=== PATIENT | female | born 1990 | race Caucasian/White ===

== ENCOUNTER 2018-02-24 12:34 | Emergency (ER) | payer SELFPAY ==
[2018-02-24] MEDS ORDERED: RINGERS SOLUTION,LACTATED 1,000 ML IV ONE (12:57)
[2018-02-24] MEDS ORDERED: NORMAL SALINE 1000 ML 1,000 ML IV PRN (12:57)
--- NOTE | 2018-02-24 12:58 | ER Document Report ---
ED Medical Screen (RME) - General Chief Complaint: Alcohol Withdrawl Stated Complaint: ALCOHOL WITDRAWAL Time Seen by Provider: 02/24/18 12:56 Notes: 27 years old female with chronic alcoholism presents today wished to go through detox program. Because she is tired of going through withdrawals. Last drink was 2 AM. Drinks variable amount of all kind of liquids. On examination-alert oriented 3, and multiple bruises noted over the lower extremity. No tremors were noted no delirium. TRAVEL OUTSIDE OF THE [place] IN LAST 30 DAYS: No - Related Data Allergies/Adverse Reactions: No Known Allergies Allergy (Verified 02/24/18 12:36) Physical Exam - Vital signs Vitals: Temp Pulse Resp BP Pulse Ox 98.0 F 74 14 122/64 99 02/24/18 12:47 02/24/18 12:47 02/24/18 12:47 02/24/18 12:47 02/24/18 12:47 Course - Vital Signs Vital signs: Temp Pulse Resp BP Pulse Ox 98.0 F 74 14 122/64 99 02/24/18 12:47 02/24/18 12:47 02/24/18 12:47 02/24/18 12:47 02/24/18 12:47 Doctor's Discharge - Discharge Referrals: URSULA QIU MD [Primary Care Provider] - Follow up as needed
[2018-02-24 14:10] LABS: ABSOLUTE LYMPHOCYTES (AUTO) 1.9 10^3/uL (0.5-4.7); ABSOLUTE MONOCYTES (AUTO) 0.3 10^3/uL (0.1-1.4); ABSOLUTE NEUT (AUTO) 9.8 10^3/uL (1.7-8.2); BASOPHILS % (AUTO) 0.3 % (0-2); EOSINOPHILS % (AUTO) 0.1 % (0-6); HEMATOCRIT 48.4 % (36.0-47.0); HEMOGLOBIN 16.7 g/dL (12.0-15.5); LYMPHOCYTES % (AUTO) 15.5 % (13-45); MEAN CORPUSCULAR HEMOGLOBIN 34.8 pg (27.0-33.4); MEAN CORPUSCULAR HGB CONC 34.6 g/dL (32.0-36.0); MEAN CORPUSCULAR VOLUME 101 fl (80-97); MONOCYTES % (AUTO) 2.8 % (3-13); PLATELET COUNT 336 10^3/uL (150-450); RED CELL DISTRIBUTION WIDTH 13.4 % (11.5-14.0); SEGMENTED NEUTROPHILS % (AUTO) 81.3 % (42-78); TOTAL CELLS COUNTED % (AUTO) 100 %; WHITE BLOOD COUNT 12.1 10^3/uL (4.0-10.5)
[2018-02-24 14:16] LABS: APPEARANCE,URINE SLIGHTLY-CLOUDY; BILIRUBIN,URINE NEGATIVE (NEGATIVE); COLOR,URINE YELLOW; GLUCOSE, URINE NEGATIVE (NEGATIVE); KETONES,URINE 80 mg/dL (NEGATIVE); LEUKOCYTE ESTERASE,URINE NEGATIVE (NEGATIVE); NITRITE,URINE NEGATIVE (NEGATIVE); PROTEIN,URINE 30 mg/dL (NEGATIVE); URINE SPECIFIC GRAVITY 1.023; UROBILINOGEN,URINE NEGATIVE mg/dL (<2.0)
[2018-02-24] MEDS ORDERED: THIAMINE HCL INJ 200 MG/2 ML VIAL IV ONE (14:18)
[2018-02-24] MEDS ORDERED: DEXTROSE 5%-LACTATED RINGERS 1,000 ML IV ONE (14:19)
[2018-02-24 14:30] LABS: URINE AMPHETAMINES SCREEN NEGATIVE; URINE BARBITURATES SCREEN NEGATIVE; URINE BENZODIAZEPINES SCREEN NEGATIVE; URINE COCAINE SCREEN NEGATIVE; URINE MARIJUANA (THC) SCREEN UNCONFIRMED POSITIVE; URINE METHADONE SCREEN NEGATIVE; URINE PHENCYCLIDINE SCREEN NEGATIVE
--- NOTE | 2018-02-24 14:35 | ER Document Report ---
ED Substance Abuse / Acc. OD - General Mode of Arrival: Ambulatory Information source: Patient TRAVEL OUTSIDE OF THE [place] IN LAST 30 DAYS: No <WAGNER LIPSCOMB - Last Filed: 02/24/18 14:31> <JM GRAMAJO - Last Filed: 02/24/18 16:25> - General Chief Complaint: Alcohol Withdrawl Stated Complaint: ALCOHOL WITDRAWAL Time Seen by Provider: 02/24/18 12:56 Notes: 27-year-old female who presents to the emergency department today with complaints of EtOH abuse and wanting help to stop. patient has been in rehab 5 times according to the E note and was "drunk 1 hour after leaving rehab last" . Patient states she wants help again trying to stop and she is not able to do it on her own. Patient states she gets "the shakes, headache, and chills" when trying to detox on her own. Patient denies homicidal or suicidal ideation. ( WAGNER LIPSCOMB) - Related Data Allergies/Adverse Reactions: No Known Allergies Allergy (Verified 02/24/18 12:36) Past Medical History - General Information source: Patient - Social History Smoking Status: Current Every Day Smoker Cigarette use (# per day): Yes Frequency of alcohol use: Heavy Drug Abuse: None Lives with: Family Family History: Reviewed & Not Pertinent Patient has suicidal ideation: No Patient has homicidal ideation: No Renal/ Medical History: Denies: Hx Peritoneal Dialysis Surgical Hx: Negative <WAGNER LIPSCOMB - Last Filed: 02/24/18 14:31> Review of Systems - Review of Systems Constitutional: See HPI, Other - EtOH abuse, EtOH withdrawal EENT: No symptoms reported Cardiovascular: No symptoms reported Respiratory: No symptoms reported Gastrointestinal: No symptoms reported Genitourinary: No symptoms reported Female Genitourinary: No symptoms reported Musculoskeletal: No symptoms reported Skin: No symptoms reported Hematologic/Lymphatic: No symptoms reported Neurological/Psychological: No symptoms reported -: Yes All other systems reviewed and negative <WAGNER LIPSCOMB - Last Filed: 02/24/18 14:31> Physical Exam <WAGNER LIPSCOMB - Last Filed: 02/24/18 14:31> <JM GRAMAJO - Last Filed: 02/24/18 16:25> - Vital signs Vitals: Temp Pulse Resp BP Pulse Ox 98.0 F 74 14 122/64 99 02/24/18 12:47 02/24/18 12:47 02/24/18 12:47 02/24/18 12:47 02/24/18 12:47 - Notes Notes: Physical Exam: General: Alert, appears well. Slightly shaky. HEENT: Normocephalic. Atraumatic. PERRL. Extraocular movements intact. Oropharynx clear. Neck: Supple. Non-tender. Respiratory: No respiratory distress. Clear and equal breath sounds bilaterally. Cardiovascular: Regular rate and rhythm. Abdominal: Normal Inspection. Non-tender. No distension. Normal Bowel Sounds. Back: Non-tender. No deformity or step off. Extremities: Moves all four extremities. Upper extremities: Normal inspection. Normal ROM. Lower extremities: Normal inspection. No edema. Normal ROM. Neurological: Normal cognition. AAOx4. Normal speech. Psychological: Normal affect. Normal Mood. Skin: Diffuse areas of ecchymosis across bilateral lower extremities in various stages of healing (WAGNER LIPSCOMB) Course - Laboratory Result Diagrams: 02/24/18 13:50 02/24/18 13:50 <WAGNER LIPSCOMB - Last Filed: 02/24/18 14:31> - Laboratory Result Diagrams: 02/24/18 13:50 02/24/18 14:56 <JM GRAMAJO - Last Filed: 02/24/18 16:25> - Re-evaluation Re-evalutation: 02/24/18 16:20 The patient's alcohol level is down to 0 at this time. She does not have any tachycardia, heart rate is 80. She does not have any skin diaphoresis. She is sitting quite comfortably and conversing and appears in no distress, not even anxious. She does not know if she is ever tried clonidine in the past for blunting her withdrawal symptoms. Patient was seen by our mental health specialist, and by our social media marketing specialist. Patient was given resources and numbers to contact for entering a lengthy detoxification program. (JM GRAMAJO) - Vital Signs Vital signs: Temp Pulse Resp BP Pulse Ox 98.5 F 80 20 114/57 L 98 02/24/18 15:41 02/24/18 15:41 02/24/18 15:41 02/24/18 15:41 02/24/18 15:41 - Laboratory Laboratory results interpreted by me: 02/24/18 02/24/18 02/24/18 13:50 13:50 14:56 WBC 12.1 H Hgb 16.7 H Hct 48.4 H MCV 101 H MCH 34.8 H Seg Neutrophils % 81.3 H Monocytes % 2.8 L Absolute Neutrophils 9.8 H Glucose 48 L AST 135 H ALT 105 H Urine Protein 30 H Urine Ketones 80 H Discharge <WAGNER LIPSCOMB - Last Filed: 02/24/18 14:31> <JM GRAMAJO - Last Filed: 02/24/18 16:25> - Discharge Clinical Impression: Alcoholism /alcohol abuse, Desire for detoxification Condition: Stable Disposition: HOME, SELF-CARE Additional Instructions: Alcohol Withdrawal Your symptoms are caused by alcohol withdrawal. After a period of frequent drinking, the brain and body are changed by the alcohol. When you quit or reduce your drinking, the nervous system becomes unstable. Withdrawal symptoms can start a few hours after your last drink, but sometimes don't begin until a couple of days later. Symptoms can include shakiness, sweating, insomnia, nausea , vomiting, fearfulness, hallucinations, and seizures. In addition to the acute effects of alcohol withdrawal, we often have to deal with the medical effects of alcoholism. These problems often include dehydration, stomach irritation, intestinal bleeding, low blood sugar, liver disease, and pancreas inflammation. Treatment for alcohol withdrawal includes mild sedatives, vitamins, and fluids. You need to be with someone who can help if symptoms become severe. Many patients can withdraw at home. Admission to the hospital or a detox facility may be necessary if withdrawal symptoms are severe and uncontrollable. Abstaining from alcohol is the only effective long-term treatment. If you start drinking again, you will not be able to control yourself after the first drink. Treatment programs are available. In addition, many alcoholics benefit from Alcoholics Anonymous or other support groups available through your counselor or voodoo regrinder operator. AL-ANON and ALA-TEEN are support groups for friends and family members of an alcoholic. Go to the emergency room if you develop persistent vomiting, severe abdominal pain, fever, shortness of breath, hallucinations, uncontrollable tremors, or seizures. Take the medication as prescribed to lessen the withdrawal symptoms if needed. Try to abstain from alcohol completely, or severely limit your intake to the minimum necessary to keep her symptoms under control. Follow-up with the resources provided to you by the social media marketing specialist and mental health worker. RETURN TO THE EMERGENCY ROOM IF ANY NEW OR WORSENING SYMPTOMS. Prescriptions: Clonidine HCl [Catapres 0.1 mg Tablet] 0.05 mg PO Q8 PRN #10 tablet PRN Reason: Withdrawal Symptoms Referrals: URSULA QIU MD [Primary Care Provider] - Follow up as needed Scribe Documentation - Scribe Written by Leonardo:: Leonardo Jay, 02/24/2018 1435 acting as scribe for :: Manjula <WAGNER LIPSCOMB - Last Filed: 02/24/18 14:31>
[2018-02-24 15:24] LABS: ALANINE AMINOTRANSFERASE 105 U/L (9-52); ALBUMIN 4.9 g/dL (3.5-5.0); ALCOHOL 25 mg/dL (NONE DETECTED); ALKALINE PHOSPHATASE 75 U/L (38-126); ANION GAP 15 (5-19); ASPARTATE AMINO TRANSFERASE 135 U/L (14-36); BILIRUBIN,DIRECT 0.4 mg/dL (0.0-0.4); BILIRUBIN,TOTAL 0.8 mg/dL (0.2-1.3); BLOOD UREA NITROGEN 12 mg/dL (7-20); CALCIUM 9.8 mg/dL (8.4-10.2); CARBON DIOXIDE 23 mmol/L (22-30); CHLORIDE 102 mmol/L (98-107); GLUCOSE 48 mg/dL (75-110); POTASSIUM 4.5 mmol/L (3.6-5.0); SODIUM 140.3 mmol/L (137-145)
[2018-02-24] MEDS ORDERED: IBUPROFEN 400 MG TABLET PO ONE (15:37)
[2018-02-24 15:42] VITALS: BP 114/57
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
== END 2018-02-24 17:00 | disposition home or self-care (01) ==
LOC: ER 12:34
DX: F10.20 Alcohol dependence, uncomplicated (principal); F17.210 Nicotine dependence, cigarettes, uncomplicated
CPT/HCPCS: 99285; 96361; 96374; 36415; 80307 ×2; 84703; 85025; 80053; 81001; J3490; J3411

== ENCOUNTER 2019-02-17 16:34 | Outpatient (CLI) | payer MEDICAID ==
[2019-02-17 18:31] LABS: APPEARANCE,URINE SLIGHTLY-CLOUDY; BILIRUBIN,URINE NEGATIVE (NEGATIVE); COLOR,URINE YELLOW; GLUCOSE, URINE NEGATIVE (NEGATIVE); KETONES,URINE NEGATIVE (NEGATIVE); LEUKOCYTE ESTERASE,URINE NEGATIVE (NEGATIVE); NITRITE,URINE NEGATIVE (NEGATIVE); PROTEIN,URINE NEGATIVE (NEGATIVE); URINE SPECIFIC GRAVITY 1.015; UROBILINOGEN,URINE NEGATIVE mg/dL (<2.0)
[2019-02-17 19:02] LABS: CHLAM PCR NOT DETECTED (NOT DETECT)
[2019-02-17 19:47] LABS: URINE AMPHETAMINES SCREEN NEGATIVE; URINE BARBITURATES SCREEN NEGATIVE; URINE BENZODIAZEPINES SCREEN NEGATIVE; URINE COCAINE SCREEN NEGATIVE; URINE MARIJUANA (THC) SCREEN NEGATIVE; URINE METHADONE SCREEN NEGATIVE; URINE PHENCYCLIDINE SCREEN NEGATIVE
--- NOTE | 2019-02-17 20:25 | Non Stress Test Report ---
Non Stress Test Datetime Report Generated by CPN: 02/17/2019 20:25 DEMOGRAPHIC Test Number: 1 EGA NST: 34.4 INDICATION Indication for Study: Ordered by Provider VITAL SIGNS Temperature - NST: 98.1 Pulse - NST: 84 RESP - NST: 16 NBPSYS NST: 119 NBPDIA NST: 57 URINE RESULTS Urine Protein, NST: Negative Urine Ketones - NST: Negative Urine Glucose - NST: Negative MONITORING Time on Monitor: 02/17/2019 17:03 Time off Monitor: 02/17/2019 19:19 NST Duration: 136 NST INTERVENTIONS NST Interventions: PO Hydration BABY A: [id number] BABY A Movement : Present Contraction Frequency : occ FHR Baseline : 135 Accelerations : 15X15 Decelerations : None Variability : Moderate 6-25bpm NST Review: Questionable if Meets Criteria for Reactive NST NST Review and Verified By : RN angel NST Results: Reactive NST REPORT Report Trigger: Send Report
== END 2019-02-17 20:01 | disposition home or self-care (01) ==
LOC: LC 16:34
PROVIDERS: ATTEND Obstetrics & Gynecology
PROC: 4A1HXCZ Monitoring of Products of Conception, Cardiac Rate, External Approach (ICD-10-PCS; principal; 2019-02-17)
DX: O47.03 False labor before 37 completed weeks of gestation, third trimester (principal); Z3A.34 34 weeks gestation of pregnancy
CPT/HCPCS: 59025; 80307; 81001; 84112; 87491; 87591

== ENCOUNTER 2019-03-08 15:34 | Inpatient (IN) | payer MEDICAID ==
[2019-03-08 16:11] LABS: APPEARANCE,URINE SLIGHTLY-CLOUDY; BILIRUBIN,URINE NEGATIVE (NEGATIVE); COLOR,URINE YELLOW; GLUCOSE, URINE NEGATIVE (NEGATIVE); KETONES,URINE 20 mg/dL (NEGATIVE); LEUKOCYTE ESTERASE,URINE LARGE (NEGATIVE); NITRITE,URINE NEGATIVE (NEGATIVE); PROTEIN,URINE 30 mg/dL (NEGATIVE); URINE SPECIFIC GRAVITY 1.019
[2019-03-08] MEDS ORDERED: OXYTOCIN/NORMAL SALINE 20 UNIT/1,000 ML RTUINJ IV PRN ×2 (16:28→21:02)
[2019-03-08] MEDS ORDERED: OXYTOCIN/NORMAL SALINE 20 UNIT/1,000 ML RTUINJ ONE (16:28)
[2019-03-08] MEDS ORDERED: MISOPROSTOL 0.2 MG TABLET ONE (16:28)
[2019-03-08] MEDS ORDERED: LIDOCAINE 1% INJ-PF (10 MG/ML) 30 ML SDV ONE (16:28)
[2019-03-08] MEDS ORDERED: RINGERS SOLUTION,LACTATED 1,000 ML IV PRN (16:28)
[2019-03-08] MEDS ORDERED: OXYTOCIN 10 UNIT/ML VIAL ONE (16:28)
[2019-03-08 16:37] LABS: URINE AMPHETAMINES SCREEN NEGATIVE; URINE BARBITURATES SCREEN NEGATIVE; URINE BENZODIAZEPINES SCREEN NEGATIVE; URINE COCAINE SCREEN NEGATIVE; URINE MARIJUANA (THC) SCREEN NEGATIVE; URINE METHADONE SCREEN NEGATIVE; URINE PHENCYCLIDINE SCREEN NEGATIVE
[2019-03-08 16:44] LABS: HEMATOCRIT 31.1 % (36.0-47.0); HEMOGLOBIN 10.6 g/dL (12.0-15.5); MEAN CORPUSCULAR HEMOGLOBIN 31.7 pg (27.0-33.4); MEAN CORPUSCULAR HGB CONC 34.1 g/dL (32.0-36.0); MEAN CORPUSCULAR VOLUME 93 fl (80-97); PLATELET COUNT 219 10^3/uL (150-450); RED BLOOD COUNT 3.36 10^6/uL (3.72-5.28); RED CELL DISTRIBUTION WIDTH 13.5 % (11.5-14.0); WHITE BLOOD COUNT 12.4 10^3/uL (4.0-10.5)
[2019-03-08 17:09] LABS: ABSOLUTE MONOCYTES # (MANUAL) 0.4 10^3/uL (0.1-1.4); BAND NEUTROPHILS % (MANUAL) 1 % (3-5); BASOPHILS % (MANUAL) 0 % (0-2); EOSINOPHILS % (MANUAL) 0 % (0-6); LYMPHOCYTES % (MANUAL) 16 % (13-45); MONOCYTES % (MANUAL) 3 % (3-13); PLATELET COMMENT ADEQUATE; RBC MORPHOLOGY COMMENT NORMO-CYTIC/CHROMIC; SEGMENTED NEUTROPHILS % (MAN) 80 % (42-78); TOTAL CELLS COUNTED 100
--- NOTE | 2019-03-08 18:20 | Admission Physical ---
Datetime Report Generated by CPN: 03/08/2019 18:20 CURRENT ADMISSION Hx Assessment: The History has been Reviewed and is Current Chief Complaint: Suspected Ruptured Membranes Indication for Induction: Not Applicable Admit Impression : Term, Intrauterine ; Ruptured Membranes Admit Plan: Admit to Unit; Initiate Labor Protocol; Initiate Labor Augmentation Protocol ALLERGIES Medication Allergies: No Medication Allergies: No Known Allergies (03/08/2019) Latex: No Latex Allergies OBSTETRICAL HISTORY EDC: 03/27/2019 00:00 : 5 Para: 3 Term: 2 : 1 SAB: 1 Livin Cesareans: 0 ART Treatment: No Hx Loss/Stillborn: No Depression/PP Depression: Yes PTL/PROM: Yes Obstetrical History Comments: Pt S/O reports to staff pt is a daily alcohol drinker and smokes marijuana. He asks that we not disclose to the patient that he gave us this information. SEE RECORDS Alcohol: No Marijuana : No Cocaine: No Other Illicit Drugs: No Cigarettes: Current Everyday Smoker. [id number] Cigarette Frequency: < 5 per day Advised to Stop: Yes MEDICAL HISTORY Diabetes: No Blood Transfusion: No Pulmonary Disease (Asthma, TB): No Breast Disease: No Hypertension: No Spout Worker Surgery: No Heart Disease: No Hosp/Surgery: No Autoimmune Disorder: No Anesthetic Complications: No Kidney Disease: No Abnormal Pap Smear: No Neuro/Epilepsy: No Psychiatric Disorders: Yes Other Medical Diseases: No Hepatitis/Liver Disease: No Significant Family History: No Varicosities/Phlebitis: No Trauma/Violence : No Thyroid Dysfunction: No INFECTIOUS HISTORY Gonorrhea: No Genital Herpes: No Chlamydia: No Tuberculosis: No Syphilis: No Hepatitis: No HIV/AIDS Exposure: No Rash or Viral Illness: No HPV: No PHYSICAL EXAM General: Normal Neurologic: Normal Heart: Normal Lungs: Normal Extremities: Normal Pelvic Type: Adequate Physical Exam Comments: proven to 8+lbs Vital Signs: Reviewed; Within Normal Limits VAGINAL EXAM Contraction Comments: 2-3 MEMBRANES Membranes: Ruptured Amniotic Fluid Color: Clear FETUS A EGA: 37.2 Monitoring: External US Decelerations: None FHR Category: Category I Presentation: Vertex Admit Comment: 28yo @ 37w2d with SROM @ 1445 today. Pt. is A neg, RI, GBS neg with hx of PTD @ 36w and on p17 injections this . Hx also significant for Late PNC, e-coli UTI and depression and anxiety which she is on zoloft for . Plan is to augment with pit per pt's desire, epidural prn. Anticipate delivery PLANS FOR LABOR AND DELIVERY Labor and Delivery: None Pain Management: Epidural Feeding Preference: Breast Benefit of Breast Feed Discussed: Yes Circumcision: Yes INFORMED CONSENT Assignment: Deedee Locke MD Signature: with User ID: [email or web address] : with User ID: [email or web address]
[2019-03-08] MEDS ORDERED: FENTANYL CITRATE INJ/PF 100 MCG/2 ML AMPUL ONE (20:51)
[2019-03-08] MEDS ORDERED: ZOLPIDEM TARTRATE 5 MG TABLET PO PRN (21:02)
[2019-03-08] MEDS ORDERED: MEASLES,MUMPS&RUBELLA VACC/PF 0.5 ML VIAL SUBCUT PRN (21:02)
[2019-03-08] MEDS ORDERED: PROMETHAZINE HCL 25 MG SUPP.RECT PR PRN (21:02)
[2019-03-08] MEDS ORDERED: MAGNESIUM HYDROXIDE SUSP 30 ML UDCUP PO PRN (21:02)
[2019-03-08] MEDS ORDERED: PROMETHAZINE HCL 25 MG TABLET PO PRN (21:02)
[2019-03-08] MEDS ORDERED: DIBUCAINE 1% OINTMENT 56 GM TP PRN (21:02)
[2019-03-08] MEDS ORDERED: DIPHENHYDRAMINE HCL 25 MG CAPSULE PO PRN (21:02)
[2019-03-08] MEDS ORDERED: NA PHOS,M-B/NA PHOS,DI-BA (ADULT) 133 ML ENEMA PR PRN (21:02)
[2019-03-08] MEDS ORDERED: ACETAMINOPHEN 325 MG TABLET PO PRN (21:02)
[2019-03-08] MEDS ORDERED: DIPH/PERTUSS(ACELL)/TETANUS VAC/PF 0.5 ML SYR (>=10YO) IM PRN (21:02)
[2019-03-08] MEDS ORDERED: ACETAMINOPHEN WITH CODEINE #3 TABLET PO PRN (21:02)
[2019-03-08] MEDS ORDERED: PSEUDOEPHEDRINE HCL 30 MG TABLET PO PRN (21:02)
[2019-03-08] MEDS ORDERED: PROMETHAZINE HCL INJ 25 MG/1 ML VIAL IV PRN (21:02)
[2019-03-08] MEDS ORDERED: BENZOCAINE/MENTHOL AEROSOL SPRAY 56 ML TOP PRN (21:02)
[2019-03-08] MEDS ORDERED: GLYCERIN/WITCH HAZEL LEAF 1 EACH MED..WIPE TP PRN (21:02)
[2019-03-08] MEDS ORDERED: IBUPROFEN 800 MG TABLET ONE (22:31)
[2019-03-09] MEDS ORDERED: ACETAMINOPHEN WITH CODEINE #3 TABLET ONE (03:03)
[2019-03-09] MEDS: ACETAMINOPHEN WITH CODEINE #3 TABLET PO PRN ×2 (03:05→12:52)
[2019-03-09] MEDS ORDERED: IBUPROFEN 800 MG TABLET ONE (06:17)
[2019-03-09] MEDS: IBUPROFEN 800 MG TABLET PO SCH ×4 (06:19→21:50)
[2019-03-09 06:58] LABS: HEMATOCRIT 29.6 % (36.0-47.0); HEMOGLOBIN 10.3 g/dL (12.0-15.5); MEAN CORPUSCULAR HEMOGLOBIN 32.2 pg (27.0-33.4); MEAN CORPUSCULAR HGB CONC 34.9 g/dL (32.0-36.0); MEAN CORPUSCULAR VOLUME 92 fl (80-97); PLATELET COUNT 178 10^3/uL (150-450); RED CELL DISTRIBUTION WIDTH 13.3 % (11.5-14.0); WHITE BLOOD COUNT 12.2 10^3/uL (4.0-10.5)
--- NOTE | 2019-03-09 08:11 | Delivery Summary ---
Del Sum A-C Datetime Report Generated by CPN: 03/09/2019 08:10 DELIVERY PERSONNEL DELIVERY PERSONNEL: [id number] Delivery Doctor:: Deedee Locke MD (Annotations: Data stored by BALTA on behalf of user) Labor and Delivery Nurse:: Ellie Barajas RNguard immigration Nurse:: Rebeca Tiwari RN Forensic Chemist/TEA AND SPICE SUPERVISOR: Cherelle Rod, ST MATERNAL INFORMATION Delivery Anesthesia: None Medications After Delivery: Pitocin Bolus-Please Comment Delivery QBL: 179 Maternal Complications: None Provider Comments: VMI delivered in [place] presentation. No nuchal cord. Shoulders and body delivered without difficulty. cord doubly clamped and cut and infant to maternal abdomen for NRP. Placenta delivered intact but with trailing secondary lobe of placenta. Crudee with no e/o retained products. FF at U. No perineal lacerations. Mother and baby stable upon provider leaving the room. LABOR SUMMARY EDC: 03/27/2019 00:00 No. Babies in Womb: 1 Attempted: No Labor Anesthesia: None LABOR INFORMATION Reason for Induction: Not Applicable Onset of Labor: 03/08/2019 14:45 Complete Dilatation: 03/08/2019 20:23 Oxytocin: Augmentation Group B Beta Strep: negative Antibiotics # of Doses: 0 Steroids Given: None Reason Steroids Not Administered: Not Applicable MEMBRANES Membranes Rupture Method: Spontaneous Rupture of Membranes: 03/08/2019 14:45 Length of Rupture (hr): 5.75 Amniotic Fluid Color: Clear Amniotic Fluid Amount: Moderate Amniotic Fluid Odor: Normal STAGES OF LABOR Stage 1 hr: 5 Stage 1 min: 38 Stage 2 hr: 0 Stage 2 min: 7 Stage 3 hr: 0 Stage 3 min: 5 Total Time in Labor hr: 5 Total Time in Labor min: 50 VAGINAL DELIVERY Episiotomy: None Laceration #1: None Laceration Extension #1: N/A Laceration Repair: Not Applicable Sponge Count Correct: Yes Sharps Count Correct: Yes BABY A INFORMATION Delivery Date/Time: 03/08/2019 20:30 Method of Delivery: Vaginal Born in Route : No : N/A Forceps: N/A Vacuum Extraction: N/A Shoulder Dystocia : No PRESENTATION/POSITION BABY A Presentation: Cephalic Cephalic Presentation: Vertex Vertex Position: Left Occipital Anterior Breech Presentation: N/A PLACENTA INFORMATION BABY A Placenta Delivery Time : 03/08/2019 20:35 Placenta Method of Delivery: Spontaneous Placenta Status: Delivered SCORES BABY A Heart Rate 1 min: >100 bpm Resp Effort 1 min: Good Cry Reflex Irritability 1 min: Cough or Sneeze or Pulls Away Muscle Tone 1 min: Active Motion Color 1 min: Blue/Pale Resuscitation Effort 1 min: Tactile Stimulation SCORE 1 MIN: 8 Heart Rate 5 min: >100 bpm Resp Effort 5 min: Good Cry Reflex Irritability 5 min: Cough or Sneeze or Pulls Away Muscle Tone 5 min: Active Motion Color 5 min: Body [place], Extremities Blue Resuscitation Effort 5 min: Tactile Stimulation SCORE 5 MIN: 9 INFORMATION BABY A Gestational Age at Delivery: 37.2 Gestational Status: Early Term- 37- 38.6 Weeks Outcome : Liveborn Infant Condition : Stable Infant Sex: Female IDENTIFICATION BABY A Infant Verification Date/Time: 03/08/2019 22:49 ID Band Number: [id number] Mother's Name Verified: Yes RN Verifying Infant: Arnold WolfeNICOLE wheeler Additional Verifying Personnel: US Warren WEIGHT/LENGTH BABY A Infant Birthweight (gm): 3277 Weight (lb): 7 Infant Weight (oz): 4 Infant Length (in): 19.75 Length (cm): 50.17 CORD INFORMATION BABY A No. Cord Vessels: 3 Nuchal Cord : N/A Cord Blood Taken: Yes-For Eval (Mom's Blood Type - or O+) Infant Suction: None ASSESSMENT BABY A Complications: None Physical Findings at Delivery: Within Normal Limits Infant Respirations: Appears Normal Skin to Skin: Yes Skin to Skin Time (min): 40 Zipper Sewing Machine Operator/ALS Called : No Transferred To: Remains with Mother BABY B INFORMATION : N/A SIGNATURES Signature: with User ID: [email or web address]
[2019-03-09] MEDS: FAMOTIDINE 20 MG TABLET PO SCH ×3 (08:28→21:49)
[2019-03-09] MEDS ORDERED: SERTRALINE HCL 50 MG TABLET PO SCH ×2 (10:00→22:00)
--- NOTE | 2019-03-09 10:43 | PDOC PROGRESS REPORT ---
Subjective-OB Progress Note for:: 03/09/19 Subjective: Doing well, no c/o, no epidural, family at BS, just came from labor and delivery Physical Exam (OB) Vital Signs: Temp Pulse Resp BP Pulse Ox 97.8 F 66 14 114/55 L 99 03/09/19 08:22 03/09/19 08:22 03/09/19 08:22 03/09/19 08:22 03/09/19 08:22 Intake & Output 03/08/19 03/09/19 03/10/19 06:59 06:59 06:59 Weight 65.5 kg Objective-Diagnostic Laboratory: 03/09/19 06:17 03/08/19 03/08/19 03/08/19 15:45 16:33 16:33 WBC 12.4 H RBC 3.36 L Hgb 10.6 L Hct 31.1 L MCV 93 MCH 31.7 MCHC 34.1 RDW 13.5 Plt Count 219 Seg Neutrophils % Not Reportable Urine Color YELLOW Urine Appearance SLIGHTLY-CLOUDY Urine pH 6.0 Ur Specific [place] 1.019 Urine Protein 30 H Urine Glucose (UA) NEGATIVE Urine Ketones 20 H Urine Blood NEGATIVE Urine Nitrite NEGATIVE Ur Leukocyte Esterase LARGE H Blood Type A NEGATIVE Antibody Screen POSITIVE 03/09/19 03/09/19 06:17 06:17 WBC 12.2 H RBC 3.20 L Hgb 10.3 L Hct 29.6 L MCV 92 MCH 32.2 MCHC 34.9 RDW 13.3 Plt Count 178 Seg Neutrophils % Urine Color Urine Appearance Urine pH Ur Specific [place] Urine Protein Urine Glucose (UA) Urine Ketones Urine Blood Urine Nitrite Ur Leukocyte Esterase Blood Type A NEGATIVE Antibody Screen Assessment and Plan(PN) - Assessment and Plan (1) Vaginal delivery Is this a current diagnosis for this admission?: Yes (2) Spontaneous rupture of amniotic membranes Is this a current diagnosis for this admission?: Yes - Time Spent with Patient Time with patient: Less than 15 minutes Medications reviewed and adjusted accordingly: Yes - Disposition Anticipated Discharge: Home Within: within 24 hours
[2019-03-09] MEDS: SENNOSIDES/DOCUSATE 8.6-50 MG 1 EACH TABLET PO SCH (10:55)
[2019-03-09] MEDS: PRENATAL VITAMIN W DHA CAPSULE PO SCH (10:55)
[2019-03-09] MEDS: DOCUSATE SODIUM 100 MG CAPSULE PO SCH ×2 (10:55→18:21)
[2019-03-09] MEDS: FERROUS SULFATE 325 MG TABLET PO SCH ×2 (10:55→18:21)
[2019-03-09 15:34] LABS: RHOGAM DOSE INDICATED 0.63333 VIAL(S)
[2019-03-09 19:45] VITALS: BP 107/57
[2019-03-10] MEDS: IBUPROFEN 800 MG TABLET PO SCH ×2 (06:14→13:27)
[2019-03-10] MEDS ORDERED: INFLUENZA QUAD (6MOS+) 2019-20 VAC 0.5 ML SYR IM ONE (08:00)
[2019-03-10] MEDS: PRENATAL VITAMIN W DHA CAPSULE PO SCH (09:58)
[2019-03-10] MEDS: FERROUS SULFATE 325 MG TABLET PO SCH (09:58)
[2019-03-10] MEDS: FAMOTIDINE 20 MG TABLET PO SCH (09:58)
[2019-03-10] MEDS: SENNOSIDES/DOCUSATE 8.6-50 MG 1 EACH TABLET PO SCH (09:59)
[2019-03-10] MEDS: DOCUSATE SODIUM 100 MG CAPSULE PO SCH (09:59)
--- NOTE | 2019-03-10 11:01 | PDOC DISCHARGE SUMMARY ---
Impression - Admit/DC Date/PCP Admission Date/Primary Care Provider: 03/08/19 16:11 ADRLENE RUSSELL DO Discharge Date: 03/10/19 - PP Day #2, doing well, no complaints, A neg, needs Rhogam, Rubella Immune, , Hx of PP depression and Bipolar, Hx +THC - Discharge Diagnosis (1) Bipolar 1 disorder Is this a current diagnosis for this admission?: Yes (2) Tetrahydrocannabinol (THC) use disorder, mild, abuse Is this a current diagnosis for this admission?: Yes (3) Is this a current diagnosis for this admission?: Yes (4) Spontaneous rupture of amniotic membranes Is this a current diagnosis for this admission?: Yes (5) Vaginal delivery Is this a current diagnosis for this admission?: Yes - Additional Information Resuscitation Status: Full Code Discharge Diet: As Tolerated, Regular Discharge Activity: Activity As Tolerated, No Lifting Over 10 Pounds, Pelvic Rest Referrals: DARLENE CAREY DO [Primary Care Provider] - Prescriptions: Ibuprofen [Motrin 800 mg Tablet] 800 mg PO Q8 #60 tablet Home Medications: Pnv,Calcium 72/Iron/Folic Acid [Pnv Plus Multivit Tab] 1 each PO DAILY 02/17/19 Sertraline HCl [Zoloft 50 mg Tablet] 50 mg PO QHS 03/09/19 Ibuprofen [Motrin 800 mg Tablet] 800 mg PO Q8 #60 tablet 03/10/19 HPI Reason(s) for Admission: Onset of Labor Procedures: Ultrasound Intrapartum Procedure(s): Spontaneous Vaginal Delivery Results Laboratory Results: WBC 12.2 10^3/uL (4.0-10.5) H 03/09/19 06:17 RBC 3.20 10^6/uL (3.72-5.28) L 03/09/19 06:17 Hgb 10.3 g/dL (12.0-15.5) L 03/09/19 06:17 Hct 29.6 % (36.0-47.0) L 03/09/19 06:17 MCV 92 fl (80-97) 03/09/19 06:17 MCH 32.2 pg (27.0-33.4) 03/09/19 06:17 MCHC 34.9 g/dL (32.0-36.0) 03/09/19 06:17 RDW 13.3 % (11.5-14.0) 03/09/19 06:17 Plt Count 178 10^3/uL (150-450) 03/09/19 06:17 Lymph % (Auto) Not Reportable 03/08/19 16:33 Steele % (Auto) Not Reportable 03/08/19 16:33 Eos % (Auto) Not Reportable 03/08/19 16:33 Baso % (Auto) Not Reportable 03/08/19 16:33 Absolute Neuts (auto) Not Reportable 03/08/19 16:33 Absolute Lymphs (auto) Not Reportable 03/08/19 16:33 Absolute Monos (auto) Not Reportable 03/08/19 16:33 Absolute Eos (auto) Not Reportable 03/08/19 16:33 Absolute Basos (auto) Not Reportable 03/08/19 16:33 Total Counted 100 03/08/19 16:33 Seg Neutrophils % Not Reportable 03/08/19 16:33 Seg Neuts % (Manual) 80 % (42-78) H 03/08/19 16:33 Band Neutrophils % 1 % (3-5) L 03/08/19 16:33 Lymphocytes % (Manual) 16 % (13-45) 03/08/19 16:33 Monocytes % (Manual) 3 % (3-13) 03/08/19 16:33 Eosinophils % (Manual) 0 % (0-6) 03/08/19 16:33 Basophils % (Manual) 0 % (0-2) 03/08/19 16:33 Abs Neuts (Manual) 10.0 10^3/uL (1.7-8.2) H 03/08/19 16:33 Abs Lymphs (Manual) 2.0 10^3/uL (0.5-4.7) 03/08/19 16:33 Abs Monocytes (Manual) 0.4 10^3/uL (0.1-1.4) 03/08/19 16:33 Absolute Eos (Manual) 0.0 10^3/uL (0.0-0.6) 03/08/19 16:33 Abs Basophils (Manual) 0.0 10^3/uL (0.0-0.2) 03/08/19 16:33 Platelet Comment ADEQUATE 03/08/19 16:33 RBC Morph Comment NORMO-CYTIC/CHROMIC 03/08/19 16:33 Fetomaternal Hemorrhag 19.00 ML (0) 03/09/19 06:17 Kleihauer-Betke Stain POSITIVE (NEGATIVE) 03/09/19 06:17 Urine Color YELLOW 03/08/19 15:45 Urine Appearance SLIGHTLY-CLOUDY 03/08/19 15:45 Urine pH 6.0 (5.0-9.0) 03/08/19 15:45 Ur Specific [place] 1.019 03/08/19 15:45 Urine Protein 30 mg/dL (NEGATIVE) H 03/08/19 15:45 Urine Glucose (UA) NEGATIVE mg/dL (NEGATIVE) 03/08/19 15:45 Urine Ketones 20 mg/dL (NEGATIVE) H 03/08/19 15:45 Urine Blood NEGATIVE (NEGATIVE) 03/08/19 15:45 Urine Nitrite NEGATIVE (NEGATIVE) 03/08/19 15:45 Urine Bilirubin NEGATIVE (NEGATIVE) 03/08/19 15:45 Urine Urobilinogen 2.0 mg/dL (<2.0) H 03/08/19 15:45 Ur Leukocyte Esterase LARGE (NEGATIVE) H 03/08/19 15:45 Urine Ascorbic Acid NEGATIVE (NEGATIVE) 03/08/19 15:45 Membranes Rupture POSITIVE (NEGATIVE) H 03/08/19 15:48 Urine Opiates Screen NEGATIVE 03/08/19 15:45 Urine Methadone Screen NEGATIVE 03/08/19 15:45 Ur Barbiturates Screen NEGATIVE 03/08/19 15:45 Ur Phencyclidine Scrn NEGATIVE 03/08/19 15:45 Ur Amphetamines Screen NEGATIVE 03/08/19 15:45 U Benzodiazepines Scrn NEGATIVE 03/08/19 15:45 Urine Cocaine Screen NEGATIVE 03/08/19 15:45 U Marijuana (THC) Screen NEGATIVE 03/08/19 15:45 Serum Alcohol < 10 mg/dL (NONE DETECTED) 03/08/19 16:33 RPR NONREACTIVE (NONREACTIVE) 03/08/19 16:33 Blood Type A NEGATIVE 03/09/19 06:17 Blood Type Confirm A NEGATIVE 03/08/19 17:52 Antibody Screen POSITIVE 03/08/19 16:33 Antibody Identification RHOGAM INDUCED ANTI-D 03/08/19 16:33 Screen POSITIVE 03/09/19 06:17 Crossmatch See Detail 03/08/19 16:33 Plan Plan of Treatment: f/u at [facility] for PP check in 4 wks
== END 2019-03-10 15:15 | disposition home or self-care (01) | DRG 806 ==
LOC: LC 15:34 → LR 16:11 → 2S 03-09 08:20
PROVIDERS: ADMIT Student in an Organized Health Care Education/Training Program; ATTEND Student in an Organized Health Care Education/Training Program
PROC: 10E0XZZ Delivery of Products of Conception, External Approach (ICD-10-PCS; principal; 2019-03-08)
PROC: 3E0334Z Introduction of Serum, Toxoid and Vaccine into Peripheral Vein, Percutaneous Approach (ICD-10-PCS; 2019-03-10)
DX: O60.14X0 Preterm labor third trimester with preterm delivery third trimester, not applicable or unspecified (principal); O99.324 Drug use complicating childbirth; Z37.0 Single live birth; O99.343 Other mental disorders complicating pregnancy, third trimester; O42.92 Full-term premature rupture of membranes, unspecified as to length of time between rupture and onset of labor; F31.9 Bipolar disorder, unspecified; F12.10 Cannabis abuse, uncomplicated; F41.9 Anxiety disorder, unspecified; O99.333 Smoking (tobacco) complicating pregnancy, third trimester; F17.210 Nicotine dependence, cigarettes, uncomplicated; Z3A.37 37 weeks gestation of pregnancy
CPT/HCPCS: 36415; 59025; 80307; 81005; 84112; 85025; 85027; 85460; 85461; 86592; 86850; 86870; 86900; 86901; 86920; 86922; 88307; 90715; J2590; J2790; J3010; J3490

== ENCOUNTER 2019-03-13 17:06 | Emergency (ER) | payer MEDICAID | END 2019-03-13 17:51 | disposition left against medical advice (07) | LOC: ER 17:06 | DX: Z53.21 Procedure and treatment not carried out due to patient leaving prior to being seen by health care provider (principal); R10.9 Unspecified abdominal pain ==